=== PATIENT | male | born 1955 | race African-American/Black ===

== ENCOUNTER 2016-10-13 15:19 | Emergency (ER) | payer OTHER ==
[~2016-10-13] VITALS: Ht 182.9 cm; Wt 117.9 kg
--- NOTE | ~2016-10-13 | EKG ---
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
[2016-10-13] MEDS ORDERED: HYDRALAZINE 2525 MG PO (15:22)
[2016-10-13 16:45] VITALS: BP 156/86
== END 2016-10-13 17:46 | disposition home or self-care (01) ==
LOC: ER 15:19
DX: S00.83XA Contusion of other part of head, initial encounter (principal); I10 Essential (primary) hypertension; J45.909 Unspecified asthma, uncomplicated; K21.9 Gastro-esophageal reflux disease without esophagitis; Z88.0 Allergy status to penicillin; W18.09XA Striking against other object with subsequent fall, initial encounter; Y93.01 Activity, walking, marching and hiking; Y92.512 Supermarket, store or market as the place of occurrence of the external cause; Y99.8 Other external cause status